=== PATIENT | male | born 2000 | race Caucasian/White ===

== ENCOUNTER 2024-02-26 06:23 | Emergency (ER) | payer OTHER, SELFPAY ==
[2024-02-26 06:25] VITALS: BP 160/80
[2024-02-26 06:37] VITALS: BP 126/87
[2024-02-26 07:22] VITALS: BMI 26.5
[2024-02-26 07:52] LABS: % Basophils 1.3 % (0-2); % Eosinophils 5.6 % (0-6); % Immature Granulocytes 0.5 % (0-0.5); % Lymphocytes 36.4 % (20.5-51.1); % Monocytes 9.7 % (1.7-9.3); % Neutrophils 46.5 % (42.2-75.2); Absolute Basophils 0.1 10^3/uL (0-0.2); Absolute Eosinophils 0.4 10^3/uL (0-0.7); Absolute Lymphocytes 2.3 10^3/uL (1.2-3.4); Absolute Monocytes 0.6 10^3/uL (0.1-0.6); Absolute Neutrophils 2.9 10^3/uL (1.4-6.5); Hematocrit 40.7 % (39.0-52.0); Hemoglobin 13.9 g/dL (13.0-18.0); Mean Corp Hgb Conc. 34.2 g/dL (33.0-37.0); Mean Corpuscular Volume 84.8 fL (80.0-94.0); Mean Platelet Volume 10.5 fL (7.4-10.4); Nucleated Red Blood Cells % 0 % (-); Platelet Count 246 10^3/uL (130-400); Red Cell Dist. Width 12.4 % (11.5-14.5); White Blood Cell Count 6.2 10^3/uL (4.8-10.8)
[2024-02-26 07:58] LABS: Urine Albumin Negative (Neg - Trace); Urine Bilirubin Negative (Negative); Urine Character Clear (Clear); Urine Color Yellow; Urine Glucose Negative (Negative); Urine Ketone Negative (Negative); Urine Leukocyte Negative (Negative); Urine Nitrite Negative (Negative); Urine Occult Blood Negative (Negative); Urine Urobilinogen Negative (Neg - 1+); Urine pH 6.5 (5.0-9.0)
[2024-02-26 08:14] LABS: ALT (SGPT) 57 U/L (0-50); AST (SGOT) 34 U/L (17-59); Albumin 4.4 g/dl (3.5-5.0); Alkaline Phosphatase 91 U/L (38-126); Blood Urea Nitrogen 15 mg/dl (9-20); Calcium 9.2 mg/dl (8.4-10.2); Carbon Dioxide 23 mmol/L (22-30); Chloride 106 mmol/L (98-107); Estimated Creatinine Clearance > 125 ml/min; Glucose 102 mg/dl (70-99); Potassium 4.5 mmol/L (3.5-5.1); Sodium 137 mmol/L (135-145); Total Bilirubin 0.6 mg/dl (0.2-1.3); eGFR > 60.00
[2024-02-26 08:45] LABS: TSH Reflex To Free T4 1.75 uIU/ml (0.47-4.68)
--- NOTE | 2024-02-26 09:16 | ED.GENMED ---
History of Present Illness
General
Chief Complaint: Anxiety
Source: patient and family (Mother)
Exam Limitations: none
Time Seen by Provider: 02/26/24 06:37
Nursing documentation reviewed up to this point in time: agreed with
Travel History
Have you had any contact with someone who has COVID-19?: No
Do you have any symptoms of coronavirus? Fever > 100 degrees, chills, cough, shortness of breath, sore throat, loss of taste or smell, muscle aches, or headache?: No
History of Present Illness
History of Present Illness:
23-year-old male presents emergency department complaining of panic attacks that he has 2-3 times a day. He also states he has frequent urination and bowel movements. He was diagnosed with hypothyroidism 2 years ago but does not take his
medication. Been prescribed medication for anxiety, but does not know which medication, and states he does not want to take medication for anxiety.
Past History
Past History
ED Past Medical History: Hypothyroidism and Psychiatric (anxiety)
ED Past Surgical History: Orthopedic (left elbow)
Social History
Tobacco: Non-smoker
Alcohol: None
Drug: Marijuana
Personal: Single
Living: with family
Review of Systems
Review of Systems
Allergies reviewed?: Yes
All Other Systems: Not applicable
Constitutional: Reports no symptoms
EENT: Reports no symptoms
Respiratory: Reports no symptoms
Cardiac: Reports no symptoms
ABD/GI: Reports no symptoms
: Reports no symptoms
Musculoskeletal: Reports no symptoms
Skin: Reports no symptoms
Neurological: Reports other (anxiety)
Endocrine: Reports no symptoms
Hematologic/Lymphatic: Reports no symptoms
Psychiatric: Reports no symptoms
Phy Exam
Physical Exam
Physical Exam:
Physical Exam
General: no apparent distress, not acutely ill
Neck: supple. no meningeal signs. normal posterior pharynx
Heart: s1/s2 regular rate and rhythm, no murmur. equal radial
pulses.
HEENT: Pupils equal round reactive to light, EOMI
Lungs: no acute respiratory distress. clear bilaterally
Abdomen: normal bowel sounds. not tender. no CVAT
Neuro: alert and oriented. no focal neurological deficits cranial nerves II through XII intact
Skin: no rash
Psychiatric: well kept. interactive and cooperative
Extremities: no edema. no calf tenderness. negative homans. good distal pulses
Course
Orders/Labs/Results
Orders:
Orders
02/26/24 07:10
EKG- Treatment ONCE
02/26/24 07:11
Electrocardiogram (*1) Urgent
Reason for Study: Palpitations
Crisis Consult Urgent
Reason for Consult: anxiety
02/26/24 07:41
Complete Blood Count/With Diff Urgent
Comprehensive Metabolic Panel Urgent
TSH Reflex To Free T4 Urgent
Urinalysis Reflex To Culture Urgent
Date Specimen was Collected: 02/26/24
Time Specimen was Collected: 07:18
Abnormal Lab Results
02/26/24
07:41
MPV 10.5 H fL
(7.4-10.4)
Monocytes % 9.7 H %
(1.7-9.3)
Glucose 102 H mg/dl
(70-99)
ALT 57 H U/L
(0-50)
02/26/24 07:41
02/26/24 07:41
Vital Signs
Initial and Last Documented VS:
Initial Vital Signs
Temp Pulse Resp BP Pulse Ox
98 F 68 18 160/80 98
02/26/24 06:25 02/26/24 06:25 02/26/24 06:25 02/26/24 06:25 02/26/24 06:25
Last Documented Vital Signs
Temp Pulse Resp BP Pulse Ox
98 F 68 18 126/87 98
02/26/24 06:25 02/26/24 06:25 02/26/24 06:25 02/26/24 06:37 02/26/24 06:25
MDM/Problems Addressed
Differential Diagnosis Includes:
Dysrhythmia, hypothyroidism, anxiety
MDM/Problems Addressed:
23-year-old male with anxiety, normal labs and EKG. Stable for discharge. Resources given by crisis. No SI or HI.
Chronic conditions affecting care: Psychiatric illness
Acute Exacerbation and/or Progression of Chronic Illness: Psychiatric illness
*Pulse Oximetry
Patient hypoxic: no
*EKG
Interpreted by ED Provider?: Yes
EKG Intrepretation Date: 02/26/24
EKG Intrepretation Time: 07:56
Interpretation: normal
Comparison EKG: no comparison EKG present
Heart Rate: 63
Rate: normal
Rhythm: sinus
Spelter: normal axis
Interval: normal interval
QRS Pattern: normal QRS
Ischemia: no ischemia
*Fuse Spooler Interpretation
Rate: normal
Interpretation: normal
Heart Rate: 65
Rhythm: sinus
*Critical Care Note
Total Time (30-74mins, 75-104mins- exclusive of procedures): Not Applicable
Patient Management
Social determinants of health affecting care: Living situation and Strong social support
Discussion with other providers: Other (Crisis staff)
Escalation/DeEscalation of care consider admission/obs:
Admit not indicated
ED Attending Note
-
Portions of this chart may have been created with voice recognition software.� Occasional wrong word or��sound alike� substitutions may have occurred due to the inherent limitations of voice recognition software.
Discharge Plan
Departure
Patient Disposition: Home (Routine Discharge)
Date of Disposition: 02/26/24
Time of Disposition: 10:05
Patient with high blood pressure during this ER visit?: Yes
Condition: Good
Discharge Problem:
Anxiety
Instructions: Anxiety, Adult (DC), BLOOD PRESSURE
Referrals:
Araceli Cortes PA [Family Provider] - Call in 1-3 days for appt
Interventions
Interventions:
*Risk Screen - Suicide Last Done: 02/26/24 06:25
*General Assessment Last Done: 02/26/24 06:30
*Neglect/Abuse Screening Last Done: 02/26/24 06:25
*ED COVID-19 Vaccine History Last Done: 02/26/24 06:30
ED-Male Genitourinary Assessment Last Done: 02/26/24 06:31
ED-Psychological Assessment Last Done: 02/26/24 06:31
Discharge Date and Time
Print Language: KOSOVAN
[2024-02-26 10:42] VITALS: BP 134/85
[2024-02-26 10:43] VITALS: BP 134/85
== END 2024-02-26 10:49 | disposition home or self-care (01) ==
LOC: EMR 06:23
PROVIDERS: EMERGENCY PHYSICIAN Emergency Medicine; FAMILY PHYSICIAN Physician Assistant Medical
DX: F41.9 Anxiety disorder, unspecified (principal); F41.0 Panic disorder [episodic paroxysmal anxiety]; R35.0 Frequency of micturition; R03.0 Elevated blood-pressure reading, without diagnosis of hypertension; Z91.148 Patient's other noncompliance with medication regimen for other reason; E03.9 Hypothyroidism, unspecified; F90.9 Attention-deficit hyperactivity disorder, unspecified type; Z86.16 Personal history of COVID-19; Z88.1 Allergy status to other antibiotic agents
CPT/HCPCS: 99283; 80053; 81003; 84443; 85025; 93005

== ENCOUNTER → 2024-04-11 08:54 | Outpatient (REF) | payer OTHER, SELFPAY | LOC: RAD 08:54 | PROVIDERS: ATTENDING PHYSICIAN Specialist; FAMILY PHYSICIAN Physician Assistant Medical | DX: N20.0 Calculus of kidney (principal) | CPT/HCPCS: 74176 ==

== ENCOUNTER 2024-06-28 03:52 | Emergency (ER) | payer OTHER, SELFPAY ==
[2024-06-28 04:15] VITALS: BP 138/99
[2024-06-28 04:45] LABS: % Basophils 0.6 % (0-2); % Eosinophils 1.4 % (0-6); % Immature Granulocytes 0.7 % (0-0.5); % Lymphocytes 18.3 % (20.5-51.1); % Monocytes 8.7 % (1.7-9.3); % Neutrophils 70.3 % (42.2-75.2); Absolute Basophils 0.1 10^3/uL (0-0.2); Absolute Eosinophils 0.2 10^3/uL (0-0.7); Absolute Immature Granulocytes 0.1 10^3/uL (0-0.05); Absolute Monocytes 0.9 10^3/uL (0.1-0.6); Absolute Neutrophils 7.6 10^3/uL (1.4-6.5); Hemoglobin 13.7 g/dL (13.0-18.0); Mean Corp Hgb Conc. 34.3 g/dL (33.0-37.0); Mean Corpuscular Hgb 27.7 pg (27.0-31.0); Mean Platelet Volume 9.9 fL (7.4-10.4); Nucleated Red Blood Cells % 0 % (-); Platelet Count 287 10^3/uL (130-400); Red Blood Cell Count 4.94 10^6/uL (4.70-6.10); Red Cell Dist. Width 12.4 % (11.5-14.5); White Blood Cell Count 10.7 10^3/uL (4.8-10.8)
[2024-06-28 04:49] LABS: Urine Albumin Trace (Neg - Trace); Urine Bilirubin Negative (Negative); Urine Character Clear (Clear); Urine Color Yellow; Urine Glucose Negative (Negative); Urine Ketone Negative (Negative); Urine Leukocyte Negative (Negative); Urine Nitrite Negative (Negative); Urine Occult Blood 2+ (Negative); Urine Specific Gravity 1.025 (<1.030); Urine Urobilinogen Negative (Neg - 1+)
[2024-06-28 04:56] LABS: ALT (SGPT) 29 U/L (0-50); AST (SGOT) 26 U/L (17-59); Albumin 4.6 g/dl (3.5-5.0); Alkaline Phosphatase 87 U/L (38-126); Blood Urea Nitrogen 21 mg/dl (9-20); Calcium 10.1 mg/dl (8.4-10.2); Carbon Dioxide 27 mmol/L (22-30); Chloride 102 mmol/L (98-107); Glucose 97 mg/dl (70-99); Lipase 93 U/L (23-300); Potassium 4.3 mmol/L (3.5-5.1); Sodium 144 mmol/L (135-145); Total Bilirubin 0.8 mg/dl (0.2-1.3); Total Protein 7.2 g/dl (6.3-8.2); eGFR > 60.00
[2024-06-28 05:01] LABS: Urine Bacteria Few (Negative); Urine Mucus Few; Urine Red Blood Cell 16-20 /HPF (0-2); Urine White Cell 0-2 /HPF (0-5)
--- NOTE | 2024-06-28 06:29 | ED.GENMED ---
History of Present Illness
General
Chief Complaint: Male Genito-Urinary Symptoms
Source: patient and family
Time Seen by Provider: 06/28/24 06:19
History of Present Illness
History of Present Illness:
23-year-old male presents to the emergency room complaining primarily of right flank pain. Patient has been having some right flank pain intermittently thought to be related to a kidney stone. Last night the pain became more severe. He has some
nausea but has not vomited. In addition the patient has been experiencing a area of redness and swelling on his buttock which began draining pus yesterday. No fever over the past 24 hours though mom states he had some chills last week. Patient
has been taking Tylenol and ibuprofen for pain with the last dose of pain medicine at 10 PM, NyQuil. Patient also noticed some blood in his urine last night.
Past History
Past History
ED Past Medical History: Hypothyroidism and Psychiatric (anxiety)
ED Past Surgical History: Orthopedic (left elbow)
Social History
Tobacco: Non-smoker
Alcohol: None
Drug: Marijuana
Personal: Single
Living: with family
Phy Exam
Physical Exam
Physical Exam:
General: Awake, Alert, Oriented X3. No acute distress.
Vitals: unremarkable
Head: Atraumatic
Eyes: Pupils equal, EOMI
Throat: Airway intact, no exudates
Neck: Trachea midline
Lungs: Clear and equal b/l
Heart: Regular rate, no murmurs
Abd: Soft, Nontender, No pulsatile mass
Back: No significant CVA tenderness to percussion
Neuro: Nonfocal
Skin: Warm, dry, no rash. Area of erythema noted the top of the gluteal fold to the left of midline. There is evidence that there had been some purulent material emanating from this area. There is quite tender to palpation but there does not
appear to be significant fluctuance.
Extremities: pulses equal b/l, no edema
Course
Orders/Labs/Results
Orders:
Orders
06/28/24 04:23
IV Insert/Care/Rem.- Treatment PRN
06/28/24 04:24
Complete Blood Count/With Diff Urgent
Comprehensive Metabolic Panel Urgent
Lipase Urgent
Urinalysis Reflex To Culture Urgent
Date Specimen was Collected: 06/28/24
Time Specimen was Collected: 04:23
Urine Microscopic Reflex Cult Urgent
06/28/24 06:28
Ketorolac [Toradol] 15 mg IV NOW STA
06/28/24 06:29
US Renal With Bladder Urgent
Comment: bladder not full ok, looking at ureteral jets
Reason For Exam: right flank pain
Abnormal Lab Results
06/28/24
04:24
Abs Immat Gran (auto) 0.1 H 10^3/uL
(0-0.05)
Absolute Neuts (auto) 7.6 H 10^3/uL
(1.4-6.5)
Absolute Monos (auto) 0.9 H 10^3/uL
(0.1-0.6)
Immature Gran % 0.7 H %
(0-0.5)
Lymphocytes % 18.3 L %
(20.5-51.1)
BUN 21 H mg/dl
(9-20)
Ur Occult Blood Reflex 2+ A
(Negative)
Urine RBC 16-20 A /HPF
(0-2)
Urine Bacteria (Reflex) Few A
(Negative)
06/28/24 04:24
06/28/24 04:24
Vital Signs
Initial and Last Documented VS:
Initial Vital Signs
Temp Pulse Resp BP Pulse Ox
98.2 F 79 18 138/99 98
06/28/24 04:15 06/28/24 04:15 06/28/24 04:15 06/28/24 04:15 06/28/24 04:15
Last Documented Vital Signs
Temp Pulse Resp BP Pulse Ox
98.2 F 74 18 113/79 98
06/28/24 04:15 06/28/24 08:50 06/28/24 08:50 06/28/24 08:50 06/28/24 08:50
MDM/Problems Addressed
Differential Diagnosis Includes:
kidney stone, pyelo, muscle strain
MDM/Problems Addressed:
Patient found to have a kidney stone at the [facility]. Patient has no fever. Pain is improved. Stone is estimated to be 3 mm and highly likely to pass on its own. Patient is known to Dr. Cano. Recommend he take Tylenol and ibuprofen for pain,
follow-up with Dr. Grossman as an outpatient.
*Radiology
Radiology exam reviewed: radiology read reviewed
*Pulse Oximetry
Patient hypoxic: no
*Critical Care Note
Total Time (30-74mins, 75-104mins- exclusive of procedures): Not Applicable
ED Attending Note
-
Portions of this chart may have been created with voice recognition software.� Occasional wrong word or��sound alike� substitutions may have occurred due to the inherent limitations of voice recognition software.
Discharge Plan
Departure
Patient Disposition: Home (Routine Discharge)
Date of Disposition: 06/28/24
Time of Disposition: 08:38
Patient with high blood pressure during this ER visit?: No
Condition: Good
Discharge Problem:
Kidney stone on right side, Abscess
Instructions: Kidney Stone, Adult ED, Boil, Adult ED
Prescriptions:
No Action
acetaminophen [Tylenol] 325 mg Tablet
650 mg PO Q4H PRN (Reason: pain)
fluoxetine 10 mg Tablet
10 mg PO DAILY
ibuprofen 400 mg Tablet
400 mg PO Q6H PRN (Reason: pain)
lisdexamfetamine [Vyvanse] 40 mg Capsule
40 mg PO DAILY
Referrals:
Jose Guadalupe Grossman Jr., MD [Active] -
Marissa Canela CRNP [Family Provider] -
Activity Restrictions/Additional Instructions:
You have a kidney stone on the right side which is about to pass into the bladder. You should return to the emergency room for help with fever for the kidney stone passes. Because you were abscess on your buttock is draining spontaneously I do not
believe any further action is required at this time. Follow-up with Dr. Gauthier for this
Interventions
Interventions:
*Risk Screen - Suicide Last Done: 06/28/24 03:54
*General Assessment Last Done: 06/28/24 04:57
*Neglect/Abuse Screening Last Done: 06/28/24 03:54
*ED COVID-19 Vaccine History Last Done: 06/28/24 04:57
*Nursing Disposition Last Done: 06/28/24 08:50
ED-Male Genitourinary Assessment Last Done: 06/28/24 04:57
Discharge Date and Time
Discharge Date/Time: 06/28/24 08:51
Print Language: NAURUAN
[2024-06-28] MEDS: TORADOL 15 MG IV (06:31)
[2024-06-28 06:39] VITALS: BP 123/95
[2024-06-28 08:50] VITALS: BP 113/79
== END 2024-06-28 08:51 | disposition home or self-care (01) ==
LOC: EMR 03:52
PROVIDERS: Emergency Medicine; EMERGENCY PHYSICIAN Emergency Medicine; FAMILY PHYSICIAN Nurse Practitioner Family
DX: N20.2 Calculus of kidney with calculus of ureter (principal); E03.9 Hypothyroidism, unspecified; F41.9 Anxiety disorder, unspecified
CPT/HCPCS: 99284; 96374; 76770; 80053; 81003; 81015; 83690; 85025

== ENCOUNTER → 2024-07-02 06:02 | Day surgery (SDC) | payer OTHER, SELFPAY ==
[2024-07-02 06:43] VITALS: BMI 25.1
[2024-07-02 06:44] VITALS: BP 142/99
--- NOTE | 2024-07-02 07:32 | W.PN.UPDATE ---
Update Note
Progress Note Update
Pt seen and evaluated at bedside in preop suite. He reports for the past two weeks pain and purulent drainage from his tailbone area. This is a new problem for him. 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 We
discussed the risks of mesh implantation in the setting of active soft tissue infection. His groin hernias do not bother him much. In my view proceeding with surgery today would incur more risk than is advisable given the active soft tissue
infection. We will DC home on PO abx and f/u in the office in 2 weeks for further discussions about pilonidal mgmt. Hernia repair is deferred.
== END | disposition home or self-care (01) ==
LOC: SDS 06:02
PROVIDERS: ATTENDING PHYSICIAN Surgery
DX: K40.20 Bilateral inguinal hernia, without obstruction or gangrene, not specified as recurrent (principal); Z53.09 Procedure and treatment not carried out because of other contraindication; B99.9 Unspecified infectious disease
CPT/HCPCS: 49650

== ENCOUNTER 2024-08-10 06:22 | Day surgery (SDC) | payer OTHER, SELFPAY ==
[2024-08-10] VITALS (11 sets, daily range): BP systolic 136–155; BP diastolic 78–96; BMI 25.6
[2024-08-10] MEDS: TYLENOL 1000 MG PO (08:38)
--- NOTE | 2024-08-10 11:44 | W.IMMPOSTOP ---
Surgical Immed Post Op Note
-
Primary Surgeon: Abrahan
Assisting: Braulio NOBLE
Pre-op Diagnosis: Bilateral inguinal hernias and incarcerated umbilical hernia
Post-op Diagnosis: Same
Procedure Performed: Robot assisted laparoscopic repair of bilateral inguinal hernias and incarcerated umbilical hernia (rTAPP)
Anesthesia Type: GETA + TAP block
Specimen / Cultures: None
Estimated Blood Loss: 5cc
Complications: None immediate
Operative Findings: Bilateral indirect defects with moderate cord lipomas; B/L XL MID 3D Max; 5mm umbilical defect with incarcerated fat; 7cm round bard soft mesh preperitoneal
--- NOTE | 2024-08-10 11:46 | OR.RPT ---
Addendum entered and electronically signed by Boby Gauthier MD 08/10/24 13:58:
The assistance of Braulio NOBLE was required due to the complexity of the procedure. During the procedure she assisted with retraction, resection, and closure of the wound.
Original Note:
Operative Report
Operative Report
Primary Surgeon: Abrahan
Assisting: Braulio NOBLE
Pre-op Diagnosis: Bilateral inguinal hernias and incarcerated umbilical hernia
Post-op Diagnosis: Same
Procedure Performed: Robot assisted laparoscopic repair of bilateral inguinal hernias and incarcerated umbilical hernia (rTAPP)
Anesthesia Type: GETA + TAP block
Specimen / Cultures: None
Estimated Blood Loss: 5cc
Complications: None immediate
Operative Findings: Bilateral indirect defects with moderate cord lipomas; B/L XL MID 3D Max; 5mm umbilical defect with incarcerated fat; 7cm round bard soft mesh preperitoneal
Date of surgery: 08/10/24
Indications:� This 23M developed a symptomatic right inguinal hernia, incidental left inguinal hernia and incarcerated umbilical hernia. He asked that we repair both groins today and the umbilicus as well. Robot assisted laparoscopic repair was
planned.
Description of procedure:� The patient was taken to the operating room and positioned into supine position. The patient�s abdomen was prepped and draped in standard sterile fashion. A time-out was completed verifying correct patient, procedure,
site, positioning, and implants and special equipment prior to beginning this procedure.
The left groin hernia was manually reduced. A stab incision was made in the left upper quadrant, a Veress needle was inserted and proper position was confirmed by aspiration and saline drop test. Following this, pneumoperitoneum was created with
insufflation of carbon dioxide to 12 mmHg. Then a 8mm robotic trocar was inserted above and to the left of the umbilicus. A laparoscope was inserted and the area of initial trocar entry and Veress needle placement were both inspected and no injuries
were found. Two 8mm trocars were then placed lateral to the rectus sheath under direct visualization.
Both inguinal regions were inspected and the median umbilical ligament, medial umbilical ligament, and lateral umbilical fold were identified. Attention was turned to the right groin. The peritoneum was incised transversely above the defect and a
flap was developed in the caudad direction. Tae�s ligament was identified ultimately dissected to its junction with the iliac vein and the space of Retzius was developed bluntly.�The dissection was continued inferiorly to the iliopubic tract,
with care taken to avoid injury to the femoral branch of the genitofemoral nerve and the lateral femoral cutaneous nerve. The cord structures were parietalized.
The direct space was inspected and no hernia defect was identified. The femoral space was inspected no defect was identified.� The indirect space was inspected and a hernia was identified and reduced by gentle traction. The canal was inspected and a
oderate size cord lipoma was identified and reduced by gentle traction.
Attention was turned to the left groin and the above process was repeated with essentially identical findings.
Extra large left and right MID 3D max mesh was passed through a trocar. The mesh was placed into the preperitoneal space and moved into position to lay flat and completely cover the direct, indirect, and femoral spaces with overlap at the midline.
The mesh was secured into place using 2-0 vicryl suture to Tae�s ligament medially and laterally. Care was taken to avoid the inferolateral triangles containing the iliac vessels and genital nerves. The peritoneal flap was closed over the mesh
and secured with 2-0 monocryl stratafix suture in similar positions of safety. A 14g angiocath was used to decompress the preperitoneal space revealing good seal and all mesh in good position without folding or curling.
Attention was turned to the umbilicus. The peritoneum was incised several cm superior to the defect and a flap was created with blunt dissection and electrocautery in the caudad direction. The hernia was identified and incarcerated fat reduced. The
defect was closed with 0 PDS stratafix suture. A 7cm x 7cm rounded soft mesh was placed into the preperitoneal space and centered on the defect. The mesh was secured to the abdominal wall with 3-0 vicryl sutures at 4 corners and under the defect,.
The flap was closed with running 2-0 monocryl suture. A 14g angiocath was used to decompress the preperitoneal space revealing good seal and all mesh in good position without folding or curling. A transversus abdominis plane block was performed
under laparoscopic vision using marcaine/decadron.
After ensuring adequate hemostasis, the trocars were removed and the pneumoperitoneum allowed to escape. The trocar incisions were closed at the skin level using 4-0 monocryl and topical skin adhesive. All counts were correct and the patient
tolerated the procedure well and was taken to the postanesthesia care unit in stable condition.
[2024-08-10] MEDS: ZOFRAN 4 MG IV (12:19)
--- NOTE | 2024-08-10 13:10 | SUR.PHASEI ---
1220-medicated with zofran for nausea, vss, color good, encouraged to rest
--- NOTE | 2024-08-10 13:20 | SUR.PHASEI ---
vss, discharge to [facility] - anxious to use bathroom, no pain - nausea subsided.
== END 2024-08-10 13:51 | disposition home or self-care (01) ==
LOC: SDS 06:22
PROVIDERS: ATTENDING PHYSICIAN Surgery
DX: K40.20 Bilateral inguinal hernia, without obstruction or gangrene, not specified as recurrent (principal); K42.0 Umbilical hernia with obstruction, without gangrene
CPT/HCPCS: 49650; 49592; C1781